=== PATIENT | male | born 1975 | race Caucasian/White ===

== ENCOUNTER 2020-03-02 14:07 | Outpatient (CLI) | payer OTHER, SELFPAY ==
--- NOTE | 2020-03-10 11:10 | WPDPFTINT ---
PFT Interpretation PFT Interpretation: This PFT met all criteria for ATS standards and reproducibility FEV/FVC post bronchodilator 64% FEV1 74% or 2.96 liters FVC 87% or 4.64 liters No bronchodilator challenge was given TLC 100% or 7.40 liters RV 122% RV/TLC 37% DLCO 80% when adjusted for alveolar volume but not adjusted for hemoglobin Flow volume loops showed some expiratory coving Impression: This PFT is limited because no bronchodilator challenge was given. It does show moderate airflow obstruction which maybe due to Asthma, COPD or combination thereof. Clinical correlation is advised.
== END 2020-03-02 14:08 | disposition home or self-care (01) ==
PROVIDERS: PCP Internal Medicine; Visit Provider Internal Medicine
DX: R06.00 Dyspnea, unspecified (principal)
CPT/HCPCS: 94375; 94726; 94729

== ENCOUNTER → 2022-12-29 06:59 | Outpatient (CLI) | payer OTHER, SELFPAY ==
--- NOTE | ~2022-12-29 | XR_ITS ---
EXAMINATION: XR cervical spine 4-5V DATE: 12/29/2022 07:21 INDICATION: Neck pain. TECHNIQUE: 6 views of cervical spine were obtained. COMPARISON: None. FINDINGS: There is 10 degrees levoscoliosis of cervicothoracic spine. Vertebral body heights are norm al. There is mildly decreased disc height at C5-C6 and C6-C7. The facet joints are unremarkable. No n eural foraminal stenosis or central canal stenosis. No prevertebral soft tissue swelling. IMPRESSION: 1. Mild cervical spondylosis. 2. Cervicothoracic levoscoliosis. Reviewed, dictated and finalized at location B.
== END ==
PROVIDERS: PCP Internal Medicine
DX: M47.892 Other spondylosis, cervical region (principal)
CPT/HCPCS: 72050

== ENCOUNTER 2023-02-14 09:38 | Outpatient (CLI) | payer OTHER, SELFPAY ==
--- NOTE | 2023-02-14 | EST_ITS ---
Patient Info Name: Celso Shields Age: 48 years : 1975 Gender: Male Ht: 72 in Wt: 230 lbs BSA: 2.33 m2 HR: 87 bpm BP: 132 / 89 mmHg Heart Rhythm: Sinus Rhythm Exam Date: 02/14/2023 10:40 AM Exam Location: [facility] Stress Patient Status: Outpatient Admit Date: 02/14/2023 Staff Ordering Physician: Brandon, Chris Shaikh MD Attending Provider: Brandon, Chris Shaikh MD Exercise Technologist: Reny Chin CT Exercise Physician: Juan Solano MD Exam Type: CA stress test treadmill w NM Study Info Indications R06.00 - Dyspnea, unspecified A nuclear stress test was performed. Summary 1. Poor exercise capacity for age. 2. Please correlate with nuclear medicine images, reported separately. 3. Moderate to severe dyspnea. 4. No abnormal ST-T wave changes with exercise. 5. Supervising and interpreting physician is Dr. Solano. Protocol: [facility] ECG Details Stage: REST Duration (min): 2 min : 4 sec Speed (mph): 0.0 Grade (%): 0 HR (bpm): 87 SBP (mmHg): 132 DBP (mmHg): 89 METS: --- Stage: REST Duration (min): 16 min : 12 sec Speed (mph): 0.0 Grade (%): 0 HR (bpm): 96 SBP (mmHg): 132 DBP (mmHg): 89 METS: --- Stage: STAGE 1 Duration (min): 1 min : 0 sec Speed (mph): 1.7 Grade (%): 10 HR (bpm): 111 SBP (mmHg): 132 DBP (mmHg): 89 METS: --- Stage: STAGE 1 Duration (min): 2 min : 0 sec Speed (mph): 1.7 Grade (%): 10 HR (bpm): 116 SBP (mmHg): 132 DBP (mmHg): 89 METS: --- Stage: STAGE 1 Duration (min): 3 min : 0 sec Speed (mph): 1.7 Grade (%): 10 HR (bpm): 118 SBP (mmHg): 153 DBP (mmHg): 89 METS: --- Stage: STAGE 2 Duration (min): 1 min : 0 sec Speed (mph): 2.5 Grade (%): 12 HR (bpm): 125 SBP (mmHg): 153 DBP (mmHg): 89 METS: --- Stage: STAGE 2 Duration (min): 2 min : 0 sec Speed (mph): 2.5 Grade (%): 12 HR (bpm): 133 SBP (mmHg): 179 DBP (mmHg): 91 METS: --- Stage: STAGE 2 Duration (min): 3 min : 0 sec Speed (mph): 2.5 Grade (%): 12 HR (bpm): 144 SBP (mmHg): 179 DBP (mmHg): 91 METS: --- Stage: STAGE 3 Duration (min): 0 min : 23 sec Speed (mph): 3.4 Grade (%): 14 HR (bpm): 148 SBP (mmHg): 179 DBP (mmHg): 91 METS: --- Stage: RECOVERY Duration (min): 0 min : 36 sec Speed (mph): 0.0 Grade (%): 0 HR (bpm): 142 SBP (mmHg): 179 DBP (mmHg): 91 METS: --- Stage: RECOVERY Duration (min): 1 min : 36 sec Speed (mph): 0.0 Grade (%): 0 HR (bpm): 129 SBP (mmHg): 179 DBP (mmHg): 91 METS: --- Stage: RECOVERY Duration (min): 2 min : 36 sec Speed (mph): 0.0 Grade (%): 0 HR (bpm): 118 SBP (mmHg): 179 DBP (mmHg): 90 METS: --- Stage: RECOVERY Duration (min): 3 min : 36 sec Speed (mph): 0.0 Grade (%): 0 HR (bpm): 112 SBP (mmHg): 168 DBP (mmHg): 84 METS: --- Stage: RECOVERY Dur
--- NOTE | ~2023-02-14 | NM_ITS ---
EXAMINATION: NM stress w perf spect multi DATE: 02/14/2023 12:08 INDICATION: Dyspnea TECHNIQUE: Rest images were obtained following intravenous administration of 11.2 mCi Tc99m tetrofosm in ([facility]). The patient performed an exercise activity. At peak exercise, 34.5 mCi Tc99m tetrofosmi n ([facility]) was administered intravenously, and stress images were obtained. Data was reconstructed i nto short axis and horizontal and vertical long axis SPECT images. Gated SPECT images were also obtai cristina. COMPARISON: None. FINDINGS: There is normal left ventricular perfusion without definite evidence of reversible or fixed perfusion abnormality to suggest ischemia or infarction. There is normal left ventricular chamber size, wall motion and ejection fraction. Left ventricular ejection fraction measures 68%. IMPRESSION: 1. Normal myocardial perfusion at rest and during stress. 2. Left ventricular ejection fraction measuring 68%. Reviewed, dictated and finalized at location A.
== END 2023-02-14 09:39 | disposition home or self-care (01) ==
PROVIDERS: PCP Internal Medicine; Visit Provider Internal Medicine
DX: R06.00 Dyspnea, unspecified (principal)
CPT/HCPCS: 78452; 93017; A9502

== ENCOUNTER → 2023-07-12 15:46 | Outpatient (CLI) | payer OTHER, SELFPAY ==
--- NOTE | ~2023-07-12 | CT_ITS ---
EXAMINATION: CT diagnostic chest wo con DATE: 07/12/2023 16:06 INDICATION: Right and mid chest pain, increasing in severity since November 2022 TECHNIQUE: Computed tomography (CT) of the chest was performed without intravenous contrast. Automate d exposure control and iterative reconstruction technique were employed. Exam dose: 544.28 mGy-cm to princess exam DLP. COMPARISON: None FINDINGS: Normal heart size. Left coronary artery calcification. No pericardial or pleural effusion. No thoracic aortic aneurysm. No hilar or mediastinal mass lesion or lymphadenopathy. Normal morphology of the adrenal glands. Included upper abdominal structures are unremarkable. No pulmonary infiltrate or consolidation or pulmonary mass lesion. Small calcified pleural plaques no zak at the posteromedial aspect of the inferior right diaphragmatic pleura. No associated soft tissue mass.. Included skeletal structures are unremarkable, other than degenerative spurring of the thoracic spine . IMPRESSION: No etiology for right and mid chest pain is identified; there is coronary atherosclerosi s Reviewed, dictated and finalized at Location A. Reviewed, dictated and finalized at location L. GER SPANISH IMPRESSION: No etiology for right and mid chest pain is identified; there is c oronary atherosclerosis
== END ==
PROVIDERS: PCP Internal Medicine; Visit Provider Internal Medicine
DX: R07.9 Chest pain, unspecified (principal)
CPT/HCPCS: 71250

== ENCOUNTER 2024-04-17 07:39 | Outpatient (CLI) | payer OTHER, SELFPAY ==
--- NOTE | ~2024-04-17 | US_ITS ---
Limited Abdominal Sonogram: Real-time sonographic imaging of the right upper quadrant was performed. Clinical History: Abdominal pain Findings: The liver appears echogenic, with no evidence of mass lesion or bile duct dilatation. Main portal vein demonstrates normal direction of flow. The gallbladder is well distended, and appears no rmal with no evidence of gallstone or wall thickening. The common bile duct measures 3 mm. The visua lized pancreas, aorta, and IVC are unremarkable. Right kidney measures 14.3 cm in length. Impression: Diffuse fatty infiltration of the liver. Reviewed, dictated and finalized at location M. [employer]GER Impression: Diffuse fatty infiltration of the liver.
== END 2024-04-17 07:40 | disposition home or self-care (01) ==
LOC: MICIMG 07:40
PROVIDERS: PCP Internal Medicine; Visit Provider Internal Medicine
DX: R10.9 Unspecified abdominal pain (principal); K76.0 Fatty (change of) liver, not elsewhere classified
CPT/HCPCS: 76705